=== PATIENT | male | born 1960 | race Caucasian/White ===

== ENCOUNTER 2019-03-10 14:59 | Emergency (ER) | payer OTHER ==
[2019-03-10] MEDS ORDERED: TETRACAINE HCL 0.5% OPH SOLN 4 ML ONE (15:34)
[2019-03-10] MEDS ORDERED: TOBRAMYCIN SULFATE/DEXAMETH OPH SUSP 2.5 ML OD ONE (16:55)
--- NOTE | 2019-03-10 17:01 | ER Document Report ---
ED Eye Complaint - General Chief Complaint: Eye Pain Stated Complaint: EYE PAIN Time Seen by Provider: 03/10/19 15:37 Primary Care Provider: AC WASHINGTON DO [ACTIVE STAFF] - Follow up as needed Mode of Arrival: Ambulatory Information source: Patient Notes: Patient was working under car on this past Thursday grinding when he believes he got something in his eye. He was wearing goggles however when he got home that night he had a little bit of irritation went to bed felt like there was something in his eye moving around when he woke up in the morning was a little still irritated but nothing major went to work and finished the day out. When he woke up this morning his eye was swollen shut and had a lot of discharge in the lower lid eyelashes that were starting to crust over. He went to the [place] for a follow-up appointment and they sent him over to the emergency room. Patient denies feeling anything flying into his eye at the time of the occurrence. Den ies any other problems at this time. TRAVEL OUTSIDE OF THE [place] IN LAST 30 DAYS: No - Related Data Allergies/Adverse Reactions: No Known Allergies Allergy (Verified 09/08/14 18:57) Past Medical History - General Information source: Patient - Social History Smoking Status: Current Every Day Smoker Cigarette use (# per day): Yes Chew tobacco use (# tins/day): No Frequency of alcohol use: Rare Drug Abuse: None Lives with: Family Family History: None, Reviewed & Not Pertinent Patient has suicidal ideation: No Patient has homicidal ideation: No Pulmonary Medical History: Reports: Hx COPD Renal/ Medical History: Denies: Hx Peritoneal Dialysis Psychiatric Medical History: Reports: Hx Depression Review of Systems - Review of Systems Constitutional: No symptoms reported EENT: See HPI, Eye pain, Eye discharge Cardiovascular: No symptoms reported Respiratory: No symptoms reported Gastrointestinal: No symptoms reported Genitourinary: No symptoms reported Male Genitourinary: No symptoms reported Musculoskeletal: No symptoms reported Skin: No symptoms reported Hematologic/Lymphatic: No symptoms reported Neurological/Psychological: No symptoms reported -: Yes All other systems reviewed and negative Physical Exam - Vital signs Vitals: Temp Pulse Resp BP Pulse Ox 97.7 F 79 18 144/75 H 97 03/10/19 15:04 03/10/19 15:04 03/10/19 15:04 03/10/19 15:04 03/10/19 15:04 Interpretation: Hypertensive - Notes Notes: PHYSICAL EXAMINATION: GENERAL: well-nourished and in no acute distress. Uncomfortable appearing HEAD: Atraumatic, normocephalic. EYES: examination of patient's right eye shows the conjunctiva to be extremely injected. Further examination with tangential light shows her to be a foreign body in the 9 o'clock position of the right cornea. Fluorescein stain shows uptake in that general area but no other spot on the cornea. Patient's right eye is tearing. ENT: Nares patent, oropharynx clear without exudates. Moist mucous membranes. LUNGS: Breath sounds clear to auscultation bilaterally and equal. No wheezes rales or rhonchi. HEART: Regular rate and rhythm without murmurs NEUROLOGICAL: Normal speech, normal gait. Normal sensory, motor exams PSYCH: Normal mood, normal affect. SKIN: Warm, Dry, normal turgor, no rashes or lesions noted. Course - Vital Signs Vital signs: Temp Pulse Resp BP Pulse Ox 97.8 F 71 16 121/70 97 03/10/19 17:05 03/10/19 17:05 03/10/19 17:05 03/10/19 17:05 03/10/19 17:05 Procedures - Eye Procedure Right Time completed: 16:56 Foreign body removal: Right Alcaine Drops Administered: Yes Fluorescein applied: Right Antibiotic Oinment/Drps Admin: Right eye Slit lamp used: No Notes: 03/10/19 16:58 Patient had a small piece of metal foreign body embedded in the right cornea. Very thin sliver type piece. I was able to use tetracaine and with a 18-gauge needle scrape most of it out. I got down to a very small piece that could still be a rust ring but is very difficult to tell however still believe it to be a very minute case of metal. I attempted to contact a couple of counter server we have not on air director today. At this point I would be using some antibiotic eyedrops and I will have patient contact a counter server outpatient if he is unable to do so I have informed her to come back to ER we will try again tomorrow to contact the counter server while he is here. I am giving him the number to Dr. Washington since his office is close by. I did call that office and leave a message but it was almost after hours. Again we have no on-call at the hospital here today. Patient is okay with this set up. He understands he might have to do some calling around on his own as well. Discharge - Discharge Clinical Impression: Foreign body of right eye Qualifiers: Encounter type: initial encounter Qualified Code(s): T15.91XA - Foreign body on external eye, part unspecified, right eye, initial encounter Disposition: HOME, SELF-CARE Instructions: Corneal Foreign Body ([facility]), Corneal Foreign Body with Rust ([facility]) Additional Instructions: As of informed you I got most of it out as far as I can tell but there still is a small millimeterPiece in there. This needs follow-up it cannot be left there unattended. I have given you the name of 1 of the counter server that we will see some of our patients but we have no one on air director here at the hospital today. You may contact any counter server you would like to however if this needs follow-up. In the meantime home and stay out of the light. He should not return to work until such time as this is taken care of. If you have a difficult time getting into see an counter server return to ER tomorrow and if it is after 2 PM you can ask for me from the PA the took care of you. My name is Alan Turner. If you come in before someone should also be able to help you if you are unable to find an counter server they can see you. As stated I am giving you the name Dr. Washington and his number this does not mean that I was able to contact him he is when I attempted to have not gotten a call back yet. Highly recommend that she contact him first thing in the morning and see if you can get in to see him. The antibiotic drops that I provided you in ER should apply every 2 hours for the first 24 hours then every 4 hours for the next 24 then 4 times a day up to 7 days total. Forms: Special Work Note, Smoking Cessation Education Referrals: AC WASHINGTON, [ACTIVE STAFF] - Follow up as needed
[2019-03-10 17:06] VITALS: BP 121/70
== END 2019-03-10 17:17 | disposition home or self-care (01) ==
LOC: ER 14:59
DX: T15.01XA Foreign body in cornea, right eye, initial encounter (principal); X58.XXXA Exposure to other specified factors, initial encounter; F17.210 Nicotine dependence, cigarettes, uncomplicated; J44.9 Chronic obstructive pulmonary disease, unspecified
CPT/HCPCS: 65220; 99283; J3490 ×2